=== PATIENT | male | born 1965 | race Caucasian/White ===

== ENCOUNTER 2016-08-24 21:07 | Emergency (ER) | payer OTHER ==
--- NOTE | ~2016-08-24 | CR229 ---
[facility] A Service of [facility] RADIOLOGY TEXT RESULTS PATIENT: JOHN HUYNH LOCATION: SED : [birth year] UNIT #: [id number] AGE: [address]: Mukul Weaver MD SEX: M ORDER DR: [id number] [place] [address] [id number] E MR#: [id number] Acc #: [id number] NAME: JOHN HUYNH : 1965 SEX: M STUDY DATE/TIME: 08/24/2016 21:31 UNIT: SED ROOM: STUDY DESCRIPTION: CR Shoulder Min 2 View Lt Attending Physician: Mukul Weaver M.D. Ordering Physician: Mukul Weaver M.D. Primary Care Physician: [facility] MEDICAL IMAGING REPORT This report is preliminary unless electronic signature is present. EXAM Left shoulder 3 views HISTORY Fell getting into truck today, shoulder pain. FINDINGS 3 views of the left shoulder demonstrate no fracture, dislocation, arthritic or inflammatory change. There does appear to be mild AC joint arthropathy. Soft tissues and visualized left thorax appear normal. IMPRESSION Mild AC joint arthropathy. No acute findings. Dictated by... Hannah Sewell M.D. THIS IS AN ELECTRONICALLY VERIFIED REPORT Hannah Sewell M.D. at 08/25/2016 8:43 PM JOSELUIS/jimmie TD: 08/25/2016 11:16 JOB #: [id number] MEDICAL IMAGING REPORT
--- NOTE | ~2016-08-24 | CR58 ---
[facility] A Service of [facility] & [facility] RADIOLOGY TEXT RESULTS PATIENT: JOHN HUYNH LOCATION: SED : [birth year] UNIT #: [id number] AGE: [address]: Mukul Weaver MD SEX: M ORDER DR: [id number] [place] [id number] E MR#: [id number] Acc #: [id number] NAME: JOHN HUYNH : 1965 SEX: M STUDY DATE/TIME: 08/24/2016 21:31 UNIT: SED ROOM: STUDY DESCRIPTION: CR Cervical Spine 2 or 3 Views Attending Physician: Mukul Weaver M.D. Ordering Physician: Mukul Weaver M.D. Primary Care Physician: [facility] MEDICAL IMAGING REPORT This report is preliminary unless electronic signature is present. EXAM Cervical spine 3 views HISTORY Fell today, fell getting in truck. Complains of neck pain. FINDINGS AP, lateral and open mouth odontoid views submitted. The lateral view is suboptimal as the lower part of C7 is not visualized. No gross fracture or malalignment. Ossification seen over the dorsal spine, nonspecific, probably degenerative. There is a small right cervical rib. Upper thorax otherwise unremarkable. The odontoid and C1-2 relationship appear normal. IMPRESSION Limited examination as the lower cervical spine is not well visualized but no gross fracture or malalignment. Incidentally noted is a small right cervical rib. Dictated by... Hannah Sewell M.D. THIS IS AN ELECTRONICALLY VERIFIED REPORT Hannah Sewell M.D. at 08/25/2016 8:43 PM JOSELUIS/jimmie TD: 08/25/2016 11:14 JOB #: [id number] MEDICAL IMAGING REPORT
[~2016-08-24 21:07] MED LIST: AMARYL PO; AMITRYPTYLINE PO; AMLODIPINE BESY10 MG PO; BACTRIM DS TABL1 TA1 PO; BACTROBAN22 GM TP; CHEWABLE ASPIRI81 MG PO; DICLOFENAC PO; DIFLUNISAL500 MG PO; DIOVAN; DIOVAN PO; FLAGYL250 M1 PO; FLEXERIL PO; FLEXERIL10 M1 PO; GLUCOPHAGE500 MG PO; HYDROCHLOROTHIA25 MG DOB; HYDROCHLOROTHIA25 MG PO; HYDROCODON-ACE1 EAC5 PO; HYDROCODON-ACE1 EAC7 PO; IBUPROFEN800 MG PO; KEFLEX125 MG/5 M PO; KEFLEX500 M1 PO; LISINOPRIL; LISINOPRIL PO; LISINOPRIL20 MG PO; LOPRESSOR PO; LORTAB 10-5001 EACH PO; LORTAB 5/500 TA1 TA1 PO; MEDROL DOSEPAK4 MG PO; METFORMIN; METFORMIN HCL500 M1 PO; METOPROLOL TAR25 MG PO; NAPROSYN375 MG PO; NAPROSYN500 MG PO; NEURONTIN; NEURONTIN PO; NEURONTIN100 MG PO; NEURONTIN300 MG PO; NORCO 7.5-3251 EACH PO; NORVASC; NORVASC PO; PERCOCET5/325 PO; PHENERGAN12.5 MG/SU RC; PHENERGAN25 MG PO; PLAVIX PO; SKELAXIN PO; TOPROL XL; TYLENOL #3 PO; VICODIN 5/1 TAB 5/50 PO; VICODIN PO; VOLTAREN75 MG PO; ZESTRIL5 MG PO; ZOCOR20 MG PO; ZOFRAN PO; ZYVOX600 MG PO
[2016-08-28] MEDS ORDERED: BACTRIM DS TABL1 TA2 PO (11:09)
== END 2016-08-24 23:40 | disposition home or self-care (01) ==
LOC: SED 21:07
DX: S40.012A Contusion of left shoulder, initial encounter (principal); J86.9 Pyothorax without fistula; I10 Essential (primary) hypertension; E11.9 Type 2 diabetes mellitus without complications; W19.XXXA Unspecified fall, initial encounter; Z79.899 Other long term (current) drug therapy
CPT/HCPCS: 72040; 73030; 82947; 87070; 87077; 87186; 87205; 99284

== ENCOUNTER 2016-10-11 20:54 | Emergency (ER) | payer OTHER ==
--- NOTE | ~2016-10-11 | CT71 ---
[facility] A Service of [facility] RADIOLOGY TEXT RESULTS PATIENT: JOHN HUYNH LOCATION: [facility] : [birth year] UNIT #: [id number] AGE: [address]: Monica Cabrera MD SEX: M ORDER DR: [id number] [place] [id number] [facility]. [place], [place] [address] [id number] E MR#: [id number] Acc #: [id number] NAME: JOHN HUYNH : 1965 SEX: M STUDY DATE/TIME: 10/11/2016 21:16 UNIT: [facility] ROOM: STUDY DESCRIPTION: CT Head Wo Contrast Attending Physician: Monica Cabrera M.D. Ordering Physician: Monica Cabrera M.D. Primary Care Physician: [facility] MEDICAL IMAGING REPORT This report is preliminary unless electronic signature is present EXAM Head CT without contrast. DATE OF EXAM 10/11/2016 HISTORY Headache for 3 days. Hypertension and diabetes. TECHNIQUE This CT exam was performed with one or more of the following radiation dose reduction techniques: automatic exposure control, adjustment of mA and/or kV according to patient size, and iterative reconstruction. FINDINGS Multiple axial images were obtained from the skull base to vertex without intravenous contrast administration. The ventricles are normal in size, shape and position. There is no midline shift. There is no mass or mass effect, hemorrhage or acute infarct. Periventricular microvascular white matter ischemic change is noted. There is mild mucosal thickening in the ethmoid and maxillary sinuses. IMPRESSION Periventricular microvascular white matter ischemic change. No acute intracranial abnormality. Dictated by... Williams Muhammad M.D. [facility] A Service of [facility] RADIOLOGY TEXT RESULTS PATIENT: JOHN HUYNH LOCATION: [facility] : [birth year] UNIT #: [id number] AGE: [address]: Monica Cabrera MD SEX: M ORDER DR: THIS IS AN ELECTRONICALLY VERIFIED REPORT Williams Muhammad M.D. at 10/12/2016 2:15 PM WENDI/malika TD: 10/11/2016 23:12 JOB #: [id number] MEDICAL IMAGING REPORT Page 1 of 1 COPY
[~2016-10-11 20:54] MED LIST changes: +BACTRIM DS TABL1 TA2 PO
== END 2016-10-11 23:10 | disposition home or self-care (01) ==
LOC: CED 20:54
DX: Z76.0 Encounter for issue of repeat prescription (principal); I10 Essential (primary) hypertension; R73.9 Hyperglycemia, unspecified; E11.40 Type 2 diabetes mellitus with diabetic neuropathy, unspecified; Z90.49 Acquired absence of other specified parts of digestive tract; Z79.899 Other long term (current) drug therapy
CPT/HCPCS: 70450; 82947; 99284

== ENCOUNTER 2016-11-15 10:54 | Emergency (ER) | payer OTHER ==
[2016-11-15] MEDS ORDERED: METFORMIN HCL1000 M1 PO (10:57)
== END 2016-11-15 11:32 | disposition home or self-care (01) ==
LOC: SED 10:54
DX: L03.114 Cellulitis of left upper limb (principal); B95.62 Methicillin resistant Staphylococcus aureus infection as the cause of diseases classified elsewhere; E11.40 Type 2 diabetes mellitus with diabetic neuropathy, unspecified; I10 Essential (primary) hypertension; Z86.14 Personal history of Methicillin resistant Staphylococcus aureus infection; Z90.49 Acquired absence of other specified parts of digestive tract; Z79.899 Other long term (current) drug therapy
CPT/HCPCS: 99282

== ENCOUNTER 2016-12-29 21:17 | Emergency (ER) | payer OTHER ==
[~2016-12-29] VITALS: Ht 175.3 cm; Wt 98.4 kg
--- NOTE | ~2016-12-29 | EKG ---
PATIENT: JOHN HUYNH UNIT #: [id number] Ventricular Rate: 99 BPM Atrial Rate: 99 BPM P-R Interval: 166 ms QRS Duration: 84 ms Q-T Interval: 364 ms QTC Calculation(Bezet): 467 ms P [place]: 47 degrees Calculated R [place]: 3 degrees Calculated T [place]: 139 degrees Diagnosis Line: Normal sinus rhythm Diagnosis Line: T wave abnormality, consider lateral ischemia Diagnosis Line: Abnormal ECG Diagnosis Line: When compared with ECG of 19-MAY-2016 23:49, Diagnosis Line: No significant change was found Diagnosis Line: Confirmed by CHARLES PA MD ([id number]) on Diagnosis Line: 12/30/2016 7:34:12 AM INTERPRETING MD: THIERNO HAYES
--- NOTE | ~2016-12-29 | CR72 ---
[facility] A Service of [facility] & [facility] RADIOLOGY TEXT RESULTS PATIENT: JOHN HUYNH LOCATION: [facility] : [birth year] UNIT #: [id number] AGE: [address]: Sha Sauceda MD SEX: M ORDER DR: [id number] [facility] [address] [place], [place] [address] [id number] E MR#: [id number] Acc #: [id number] NAME: JOHN HUYNH : 1965 SEX: M STUDY DATE/TIME: 12/29/2016 23:54 UNIT: [facility] ROOM: STUDY DESCRIPTION: CR Chest Single View Portable Attending Physician: Sha Sauceda M.D. Ordering Physician: Sha Sauceda M.D. Primary Care Physician: [facility] MEDICAL IMAGING REPORT This report is preliminary unless electronic signature is present EXAM Portable chest. INDICATIONS Chest pain for the past 2 days. PROCEDURE Frontal view chest. COMPARISON 07/20/2014 FINDINGS Heart size is stable. No new dense consolidation, pleural fluid or pneumothorax. IMPRESSION No active process. Stable cardiomegaly. Dictated by... Michael Christie M.D. THIS IS AN ELECTRONICALLY VERIFIED REPORT Michael Christie M.D. at 01/03/2017 8:30 AM EED/denis TD: 12/30/2016 06:42 JOB #: [id number] MEDICAL IMAGING REPORT Page 1 of 1 COPY
--- NOTE | ~2016-12-29 | CT71 ---
[facility] A Service of [facility] RADIOLOGY TEXT RESULTS PATIENT: JOHN HUYNH LOCATION: [facility] : [birth year] UNIT #: [id number] AGE: [address]: Sha Sauceda MD SEX: M ORDER DR: [id number] [place] [id number] [facility]. [place], [place] [address] [id number] E MR#: [id number] Acc #: [id number] NAME: JOHN HUYNH : 1965 SEX: M STUDY DATE/TIME: 12/30/2016 0:45 UNIT: [facility] ROOM: STUDY DESCRIPTION: CT Head Wo Contrast Attending Physician: Sha Sauceda M.D. Ordering Physician: Sha Sauceda M.D. Primary Care Physician: [facility] MEDICAL IMAGING REPORT This report is preliminary unless electronic signature is present EXAM CT head without contrast INDICATION Headache today. PROCEDURE Unenhanced CT of the head. This CT examination was performed with one or more of the following radiation dose reduction techniques: automatic exposure control, adjustment of mA and/or kV according to patient size, and iterative reconstruction. COMPARISON 10/11/2016. FINDINGS No acute hemorrhage, abnormal mass effect, extraaxial fluid collection or hydrocephalus. No definitive evidence for acute or early subacute large territory infarct. No depressed calvarial fracture. Paranasal sinuses, mastoid air cells clear. IMPRESSION No acute intracranial findings. Dictated by... Michael Christie M.D. THIS IS AN ELECTRONICALLY VERIFIED REPORT Michael Christie M.D. at 01/03/2017 8:30 AM EED/jimmie TD: 12/30/2016 07:05 [facility] A Service of [facility] RADIOLOGY TEXT RESULTS PATIENT: JOHN HUYNH LOCATION: [facility] : 69 UNIT #: [id number] AGE: [address]: Sha Sauceda MD SEX: M ORDER DR: JOB #: [id number] MEDICAL IMAGING REPORT Page 1 of 1 COPY
--- NOTE | ~2016-12-29 | CR229 ---
[facility] A Service of [facility] & [facility] RADIOLOGY TEXT RESULTS PATIENT: JOHN HUYNH LOCATION: [facility] : [birth year] UNIT #: [id number] AGE: [address]: Sha Sauceda MD SEX: M ORDER DR: [id number] [facility] [address] [place], [place] [address] [id number] E MR#: [id number] Acc #: [id number] NAME: JOHN HUYNH : 1965 SEX: M STUDY DATE/TIME: 12/29/2016 23:55 UNIT: [facility] ROOM: STUDY DESCRIPTION: CR Shoulder Min 2 View Lt Attending Physician: Sha Sauceda M.D. Ordering Physician: Sha Sauceda M.D. Primary Care Physician: [facility] MEDICAL IMAGING REPORT This report is preliminary unless electronic signature is present EXAM Left shoulder series INDICATION Left shoulder pain for the past 2 days. PROCEDURE Three views of the left shoulder. COMPARISON 08/24/2016. FINDINGS No acute fracture or dislocation. Mild AC joint arthrosis is stable. IMPRESSION Mild AC joint arthrosis. No acute findings. Dictated by... Michael Christie M.D. THIS IS AN ELECTRONICALLY VERIFIED REPORT Michael Christie M.D. at 01/03/2017 8:31 AM TRENT/jimmie TD: 12/30/2016 06:49 JOB #: [id number] MEDICAL IMAGING REPORT Page 1 of 1 COPY
[~2016-12-29 21:17] MED LIST changes: +METFORMIN HCL1000 M1 PO
[2016-12-30 03:31] LABS: BASOPHIL# 0.1 X10e3 (0-0.3); DIFF IND NO; EOSINOPHIL# 0.2 X10e3 (0-0.7); EOSINOPHIL% 1.5 % (0.0-7.0); HEMATOCRIT 43.9 % (38.0-50.0); HEMOGLOBIN 14.5 gm/dL (13.0-16.0); LYMPHOCYTE# 5.2 X10e3 (1.0-3.5); LYMPHOCYTE% 36.3 % (17.0-45.0); MEAN CELL VOLUME 95.8 FL (83-96); MEAN CORPUSCULAR HEMOGLOBIN 31.6 PG (28-34); MEAN CORPUSCULAR HGB CONC 32.9 g/dL (30-36); MEAN PLATELET VOLUME 12.3 FL (6.5-11.5); MONOCYTE# 1.4 X10e3 (0-1.0); MONOCYTE% 9.5 % (3.0-12.0); NEUTROPHIL# 7.4 X10e3 (1.5-7.1); NEUTROPHIL% 51.7 % (40-75); RED BLOOD COUNT 4.58 X10e (3.90-5.60); RED CELL DISTRIBUTION WIDTH 13.1 % (11.0-15.5); WHITE BLOOD COUNT 14.4 X10e3 (4.0-10.5)
[2016-12-30 03:34] LABS: PLATELET COUNT 304 X10e3 (140-420)
[2016-12-30 03:38] LABS: ACETAMINOPHEN <10 ug/mL; ALCOHOL BLOOD <5 mg/dL ([, 0]); ALKALINE PHOSPHATASE 89 U/L (32-92); ALT (SGPT) 14 U/L (10-40); AST (SGOT) 21 U/L (10-42); BILIRUBIN, DIRECT 0.1 mg/dL (0.0-0.2); BILIRUBIN,INDIRECT 1.1 mg/dL (0.0-0.9); BILIRUBIN,TOTAL 1.2 mg/dL (0.2-2.0); BLOOD UREA NITROGEN 30 mg/dL (9-23); BUN/CREATININE RATIO 13.04; CALCIUM SERUM 8.8 mg/dL (8.4-10.2); CARBON DIOXIDE 26 mmol/L (22-31); CHLORIDE 101 mmol/L (100-111); CREATININE SERUM 2.3 mg/dL (0.6-1.4); GLOM FILT RATE Estimated 32.2 mL/min (>60); GLUCOSE FASTING 274 mg/dL (70-110); POTASSIUM 3.3 mmol/L (3.5-5.1); PROTEIN TOTAL SERUM 7.8 g/dL (6.0-8.3); SALICYLATE <4.0 mg/dL; SODIUM 135 mmol/L (135-145)
[2016-12-30 03:49] LABS: URINE SOURCE CLEAN CATCH
[2016-12-30 03:50] LABS: URBCS1 AUWI 0-2 /[HPF] (0-2); URINE APPEARANCE CLEAR; URINE BACTERIA AUWI NEG (NEGATIVE); URINE BILIRUBIN NEG (NEG); URINE BLOOD 1+ (NEG); URINE COLOR YELLOW; URINE GLUCOSE 100 MG/DL (NEG); URINE KETONE TRACE (NEG); URINE LEUKOCYTE ESTERASE NEG (NEG); URINE NITRATE NEG (NEG); URINE PROTEIN 1+ (NEG); URINE SPECIFIC GRAVITY 1.016 (1.003-1.035); URINE SQUAMOUS EPITHELIAL CELL NONE SEEN /[HPF]; URINE UROBILINOGEN 0.2 MG/DL (NEG); UWBCS1 AUWI 0-2 (0-5)
[2016-12-30 03:51] LABS: AMPHETAMINE NEG (NEG); BARBITURATES NEG (NEG); BENZODIAZEPINES NEG (NEG); COCAINE NEG (NEG); CULTURE INDICATED? NO; MARIJUANA NEG (NEG); OPIATES NEG (NEG); TRICYCLIC ANTIDEPRESSANTS NEG (NEG); U HYALINE CASTS AUWI 0-2 /[LPF]; U METHADONE NEG (NEG)
[2016-12-30 04:44] LABS: POC - CKMB 1.9 ng/mL (0.0-7.9); POC - TROPONIN <0.05 ng/mL (<=0.05)
[2016-12-30 05:04] LABS: POC - CKMB 2.7 ng/mL (0.0-7.9); POC - TROPONIN <0.05 ng/mL (<=0.05)
== END 2016-12-30 06:05 | disposition home or self-care (01) ==
LOC: CED 21:17
PROVIDERS: Emergency Medicine
DX: T67.5XXA Heat exhaustion, unspecified, initial encounter (principal); N17.9 Acute kidney failure, unspecified; E86.0 Dehydration; M25.512 Pain in left shoulder; I10 Essential (primary) hypertension; E11.9 Type 2 diabetes mellitus without complications; Z91.19 Patient's noncompliance with other medical treatment and regimen; Z79.84 Long term (current) use of oral hypoglycemic drugs; Z79.899 Other long term (current) drug therapy
CPT/HCPCS: 36415; 70450; 71010; 73030; 80048; 80076; 80307; 81003; 82550; 82553; 82947; 84484; 85025; 93005; 96360; 99284; G0480